=== PATIENT | male | born 1975 | race African-American/Black ===

== ENCOUNTER 2018-03-06 11:32 | Emergency (ER) | payer MEDICARE, OTHER, MEDICAID ==
[~2018-03-06] VITALS: Ht 177.8 cm; Wt 113.4 kg
[2018-03-06 12:02] VITALS: BP 140/88
[2018-03-06 12:34] LABS: Urine Bacteria NONE SEEN /hpf (None Seen); Urine Blood 1+ /uL (Negative); Urine Specific Gravity 1.019 (1.001-1.035); Urine WBC <1 /hpf (0 - 3)
== END 2018-03-06 13:07 | disposition home or self-care (01) ==
LOC: ER 11:32
DX: R30.0 Dysuria (principal)
CPT/HCPCS: 81001

== ENCOUNTER 2019-10-31 02:08 | Emergency (ER) | payer MEDICAID, MEDICARE, OTHER ==
[~2019-10-31] VITALS: Ht 177.8 cm; Wt 117.9 kg
[2019-10-31 05:08] VITALS: BP 116/79
== END 2019-10-31 05:53 | disposition home or self-care (01) ==
LOC: ER 02:09
DX: J03.00 Acute streptococcal tonsillitis, unspecified (principal)
CPT/HCPCS: 87804; 87880

== ENCOUNTER 2024-10-03 13:40 | Emergency (ER) | payer OTHER, MEDICARE ==
[~2024-10-03] VITALS: Ht 177.8 cm; Wt 125.0 kg
--- NOTE | 2024-10-03 13:57 | ECG ---
[facility] Test Date: 2024-10-03 Test Time: 13:56:42 Pat Name: TATI TSE Department: ER Room: Gender: M [employer] Consultant: EMMA : 1975 Requested By: NAOMIE WORTHINGTON Order Number: [id number] Reading MD: Darío Kenney Measurements Intervals [place] Rate: 66 P: 44 DE: 144 QRS: 2 QRSD: 88 T: 12 QT: 409 QTc: 429 Interpretive Statements Sinus rhythm LVH by voltage Baseline wander in lead(s) V2 Electronically Signed On 10-03-2024 16:41:10 PDT by Darío Kenney Please click the below link to view image of tracing.
[2024-10-03] MEDS: cloNIDine HCL 0.1 MG TAB PO ONE (14:00)
--- NOTE | 2024-10-03 14:00 | ED.PDOC ---
History of Present Illness HPI Comments 48 y/o M, with no prior medical history presents to the ED for CC of dizziness. Patient states, he has been experiencing dizziness with associated blurred vision and headache onset, this morning (10/03/24). Patient reports, that he was seen at [facility] Today (10/03/24) and was relayed to the ED, for further evaluation of symptoms. Patient denies nausea, vomiting, ear ringing, numbness, or weakness. No other symptoms or modifying factors present at this time. Time Seen by MD: 13:50 Primary Care Provider: [place] Reviewed Notes: Nurses Notes, Medications, Allergies Allergies: Coded Allergies: Iodine (Unverified Allergy, Unknown, 01/27/14) Information Source: Patient Mode of Arrival: Ambulatory Severity: Moderate Timing: Hours Duration: Since onset Prehospital treatment: None Past Medical History PAST MEDICAL HISTORY: Denies Surgical History: Appendectomy Surgical History (Other): BACK Family History Family History: Reviewed,noncontributory to illness, No family hx of Cancer, No family hx of DM, No family hx of Heart amy, No family hx of HTN, No family hx ofKidney amy, No family hx of Liver amy, No family hx of Lung amy, No family hx of Stroke Social History Smoker: Non-Smoker Alcohol: Denies ETOH Use Drugs: Denies Drug Use Lives In: Home Constitutional: denies: chills, diaphoresis, fatigue, fever, malaise, sweats, weakness, others EENTM: reports: blurred vision; denies: double vision, ear bleeding, ear discharge, ear drainage, ear pain, ear ringing, eye pain, eye redness, hearing loss, mouth pain, mouth swelling, nasal discharge, nose bleeding, nose congestion, nose pain, photophobia, tearing, throat pain, throat swelling, voice changes, others Respiratory: denies: cough, hemoptysis, orthopnea, SOB at rest, shortness of breath, SOB with excertion, stridor, wheezing, others Cardiovascular: denies: chest pain, dizzy spells, diaphoresis, Dyspnea on exertion, edema, irregular heart beat, left arm pain, lightheadedness, palpitations, PND, syncope, others Gastrointestinal: denies: abdomen distended, abdominal pain, blood streaked bowels, constipated, diarrhea, dysphagia, difficulty swallowing, hematemesis, melena, nausea, poor appetite, poor fluid intake, rectal bleeding, rectal pain, vomiting, others Genitourinary: denies: burning, dysuria, flank pain, frequency, hematuria, incontinence, penile discharge, penile sore, pain, testicle pain, testicle swelling, urgency, others Neurological: reports: dizziness, headache; denies: fainting, left sided numbness, left sided weakness, numbness, paresthesia, pre-existing deficit, right sided numbness, right sided weakness, seizure, speech problems, tingling, tremors, weakness, others Musculoskeletal: denies: back pain, gout, joint pain, joint swelling, muscle pain, muscle stiffness, neck pain, others Integumetry: denies: bruises, change in color, change in hair/nails, dryness, laceration, lesions, lumps, rash, wounds, others Allergic/Immunocompromised: denies: Difficulty Healing, Frequent Infections, Hives, Itching, others Hematologic/Lymphatic: denies: anemia, blood clots, easy bleeding, easy bruising, swollen glands, others Endocrine: denies: excessive hunger, excessive sweating, excessive thirst, excessive urination, flushing, intolerance to cold, intolerance to heat, unexplained weight gain, unexplained weight loss, others Psychiatric: denies: anxiety, bipolar disorder, depression, hopeless, panic disorder, schizophrenia, sleepless, suicidal, others All Other Systems: Reviewed and Negative Physical Exam General Appearance: No Apparent Distress HEENT: Normal ENT Inspection, Pharynx Normal, TMs Normal Neck: Full Range of Motion, Non-Tender, Normal, Normal Inspection Respiratory: Chest Non-Tender, Lungs Clear, No Accessory Muscle Use, No Resp iratory Distress, Normal Breath Sounds Cardiovascular: No Edema, No JVD, No Murmur, No Gallop, Normal Peripheral Pulses, Regular Rate/Rhythm Breast Exam: Deferred Gastrointestinal: No Organomegaly, Non Tender, No Pulsatile Mass, Normal Bowel Sounds, Soft Genitalia: Deferred Pelvic: Deferred Rectal: Deferred Extremities: No calf tenderness, Normal capillary refill, Normal inspection, Normal range of motion, Non-tender, No pedal edema Musculoskeletal : Apperance: Normal Neurologic: Alert, private tutor II-XII nml as Tested, No Motor Deficits, Normal Affect, Normal Mood, No Sensory Deficits Cerebellar Function: Normal Reflexes: Normal Skin: Dry, Normal Color, Warm Lymphatic: No Adenopathy Was a procedure done? Was a procedure done?: No EKG EKG : Pulse Rate (adult): 66 [place]: Normal Cardiac Rhythm: NSR Block: None Hypertrophy: None ST: Normal Differential Dx Considerations may include: anemia, hypotension, dehydration, electrolyte imbalance X-Ray, Labs, Meds, VS Vital Signs Date Time Temp Pulse Resp B/P (MAP) Pulse Ox O2 Delivery O2 Flow Rate FiO2 10/03/24 14:33 66 10/03/24 13:56 66 10/03/24 13:40 97.8 70 16 125/83 (97) 98 97.8 Lab Test 10/03/24 14:06 Range/Units White Blood Count 4.3 L 4.4-10.8 10^3/uL Red Blood Count 4.97 4.5-5.90 10^6/uL Hemoglobin 15.7 13.5-17.5 g/dL Hematocrit 47.3 41.0-53.0 % Mean Corpuscular Volume 95.2 80.0-100.0 fL Mean Corpuscular Hemoglobin 31.6 28.0-32.0 pg Mean Corpuscular Hemoglobin Concent 33.2 32.0-36.0 g/dL Red Cell Distribution Width 13.7 11.8-14.3 % Platelet Count 280 140-450 10^3/uL Mean Platelet Volume 8.4 6.9-10.8 fL Neutrophils (%) (Auto) 29.8 L 37.0-80.0 % Lymphocytes (%) (Auto) 50.6 H 10.0-50.0 % Monocytes (%) (Auto) 14.9 H 0.0-12.0 % Eosinophils (%) (Auto) 3.5 0.0-7.0 % Basophils (%) (Auto) 1.2 0.0-2.0 % Neutrophils # (Auto) 1.3 L 1.6-8.6 10 ^3/uL Lymphocytes # (Auto) 2.2 0.4-5.4 10 ^3/uL Monocytes # (Auto) 0.6 0-1.3 10 ^3/uL Eosinophils # (Auto) 0.2 0-0.8 10 ^3/uL Basophils # (Auto) 0.1 0-0.2 10 ^3/uL Nucleated Red Blood Cells 0.3 % Sodium Level 140 136-145 mmol/L Potassium Level 3.8 3.5-5.1 mmol/L Chloride Level 108 H 98-107 mmol/L Carbon Dioxide Level 25 20-31 mmol/L Anion Gap 7 5-15 Blood Urea Nitrogen 7 L 9-23 mg/dL Creatinine 0.93 0.700-1.30 mg/dL Glomerular Filtration Rate Calc 102 >90 mL/min BUN/Creatinine Ratio 7.5 L 10.0-20.0 Serum Glucose 97 74-106 mg/dL Calcium Level 9.9 8.7-10.4 mg/dL HEAD CT W/O CONTRAST: IMPRESSION: No acute intracranial abnormality. The patient's CBC and chemistry panel are within normal limits At this time we did tell the patient that most likely the dizziness could be secondary to his elevated blood pressure The patient will return to the emergency department's condition worsens The patient understands and agrees with the management We do not feel that we should start the patient on blood pressure medication at this time The patient will follow up with his primary care doctor Images Reviewed?: Images reviewed and evaluated by me Time of 1ST Reevaluation: 14:20 Reevaluation 1ST: Unchanged Patient Education/Counseling: Diagnosis, Treatment, Prognosis, Need For Follow Up Family Education/Counseling: No Family Present Departure 1 Departure Time of Disposition: 17:00 Impression: Primary Impression: Hypertensive urgency Disposition: 01 HOME / SELF CARE / HOMELESS Condition: Fair Discharged With: Self Critical Care Note Critical Care Time?: No Stability Stability form required: No Heart Score Heart Score: Heart Score Response (Comments) Value History N/A 0 EKG N/A 0 Age N/A 0 Risk Factors N/A 0 Troponin N/A 0 Total 0 I personally scribed for NAOMIE WORTHINGTON MD ([email or web address]) on 10/03/24 at 14:00. Electronically submitted by Coleen Gambino ([email or web address]). I personally scribed for NAOMIE WORTHINGTON MD ([email or web address]) on 10/03/24 at 14:33. Electronically submitted by Coleen Gambino ([email or web address]). NAOMIE WORTHINGTON MD October 03, 2024 14:00
--- NOTE | 2024-10-03 14:26 | DVH ---
CT HEAD WITHOUT CONTRAST INDICATION: dizziness/GARCÍA/blurred vsion EXAM DATE: 10/03/2024 01:56 PM COMPARISON: None RADIATION DOSE: CTDIvol: 68.67 mGy, DLP: 1352.96 mGy*cm PROCEDURE: CT scans of the head were obtained from the vertex to the skull base. Sagittal and coronal reconstructions were provided. All CT scans at this medical facility are performed using dose modulation techniques as appropriate t o a performed exam including the following: Automated exposure control was utilized; adjustment of th e MA and/or KV according to patient size; and use of iterative reconstruction technique. FINDINGS: There is sulcal and ventricular prominence. The brainshows normal morphology and delong-whi te matter differentiation, without intracranial hemorrhage, extra-axial fluid collection, mass effect or acute large vessel infarct. The ventricles are normal in size. The basal cisterns are patent. The skull and visible facial bones are intact. The paranasal sinuses, mastoid air cells and middle ear c avities are well-aerated. The soft tissues of the scalp are unremarkable. IMPRESSION: No acute intracranial abnormality.
[2024-10-03 14:31] LABS: Potassium 3.8 mmol/L (3.5-5.1); Sodium 140 mmol/L (136-145)
[2024-10-03 14:32] LABS: Anion Gap 7 (5-15); Basophils # (auto) 0.1 10 ^3/uL (0-0.2); Basophils % (auto) 1.2 % (0.0-2.0); Carbon Dioxide 25 mmol/L (20-31); Eosinophils # (auto) 0.2 10 ^3/uL (0-0.8); Eosinophils % (auto) 3.5 % (0.0-7.0); Hematocrit 47.3 % (41.0-53.0); Hemoglobin 15.7 g/dL (13.5-17.5); Lymphocytes # (auto) 2.2 10 ^3/uL (0.4-5.4); Lymphocytes % (auto) 50.6 % (10.0-50.0); Mean Corpuscular Hemoglobin 31.6 pg (28.0-32.0); Mean Corpuscular Hgb Conc. 33.2 g/dL (32.0-36.0); Mean Corpuscular Volume 95.2 fL (80.0-100.0); Monocytes # (auto) 0.6 10 ^3/uL (0-1.3); Monocytes % (auto) 14.9 % (0.0-12.0); Neutrophils # (auto) 1.3 10 ^3/uL (1.6-8.6); Neutrophils % (auto) 29.8 % (37.0-80.0); Nucleated Red Blood Cells % 0.3 %; Platelet Count (auto) 280 10^3/uL (140-450); Red Blood Cells 4.97 10^6/uL (4.5-5.90); Red Cell Distribution Width 13.7 % (11.8-14.3); White Blood Cell 4.3 10^3/uL (4.4-10.8)
[2024-10-03 14:33] LABS: Calcium 9.9 mg/dL (8.7-10.4)
[2024-10-03 14:35] LABS: Chloride 108 mmol/L (98-107)
[2024-10-03 14:37] LABS: BUN/Creatinine Ratio 7.5 (10.0-20.0); Glucose 97 mg/dL (74-106)
[2024-10-03 14:39] LABS: Blood Urea Nitrogen 7 mg/dL (9-23)
[2024-10-03 18:15] VITALS: BP 138/95; PULSE 63; RESP 16; TEMP 98.9; O2SAT 97
== END 2024-10-03 18:35 | disposition home or self-care (01) ==
LOC: ER 13:43
DX: I16.0 Hypertensive urgency (principal); Z90.49 Acquired absence of other specified parts of digestive tract; Z91.040 Latex allergy status
CPT/HCPCS: 36415; 70450; 80048; 82947; 85025; 93005